=== PATIENT | female | born 1990 | race American Indian/Alaskan Native ===

== ENCOUNTER 2017-07-27 15:51 | Emergency (ER) | payer BC, OTHER ==
[~2017-07-27] VITALS: Ht 160 cm; Wt 74.8 kg
[~2017-07-27 15:51] MED LIST: NORCO 5-325 TA1 EACH PO; ZOFRAN ODT8 MG PO
[2017-07-27] MEDS ORDERED: FLUOXETINE HCL20 MG PO (16:15)
== END 2017-07-27 17:07 | disposition home or self-care (01) ==
LOC: ED 15:51
DX: S00.03XA Contusion of scalp, initial encounter (principal); F17.200 Nicotine dependence, unspecified, uncomplicated; Z79.899 Other long term (current) drug therapy; W22.8XXA Striking against or struck by other objects, initial encounter; Y92.89 Other specified places as the place of occurrence of the external cause
CPT/HCPCS: 99282

== ENCOUNTER 2018-09-27 13:30 | Emergency (ER) | payer BC, OTHER ==
[~2018-09-27] VITALS: Ht 160 cm; Wt 81.7 kg
[~2018-09-27 13:30] MED LIST changes: +FLUOXETINE HCL20 MG PO
[2018-09-27] MEDS ORDERED: FLUOXETINE HCL40 MG PO (13:45)
[2018-09-27] MEDS ORDERED: BUSPIRONE HCL10 MG PO (13:46)
[2018-09-27] MEDS ORDERED: INTROVALE1 EACH PO (13:46)
== END 2018-09-27 15:23 | disposition home or self-care (01) ==
LOC: ED 13:30
DX: N93.9 Abnormal uterine and vaginal bleeding, unspecified (principal); R11.2 Nausea with vomiting, unspecified; Z79.899 Other long term (current) drug therapy
CPT/HCPCS: 80053; 81001; 84703; 85025; 99284